=== PATIENT | female | born 1970 | race Caucasian/White ===

== ENCOUNTER → 2018-05-06 | Outpatient (CLI) | payer BC | LOC: FIMAGING 15:22 | PROVIDERS: ATTEND Physician Assistant Surgical | DX: Z09 Encounter for follow-up examination after completed treatment for conditions other than malignant neoplasm (principal); M43.12 Spondylolisthesis, cervical region; G56.02 Carpal tunnel syndrome, left upper limb; G56.01 Carpal tunnel syndrome, right upper limb; Z98.1 Arthrodesis status ==

== ENCOUNTER → 2018-07-31 | Outpatient (CLI) | payer BC | LOC: FIMAGING 11:52 | PROVIDERS: ATTEND Orthopaedic Surgery | DX: Z01.818 Encounter for other preprocedural examination (principal); M17.11 Unilateral primary osteoarthritis, right knee ==

== ENCOUNTER 2018-08-07 05:55 | Observation (INO) | payer BC ==
[2018-08-07] MEDS ORDERED: TRANEXAMIC ACID 3,000 MG in NS (SYRINGE) 50 ML IRR ONE (06:00)
[2018-08-07] MEDS ORDERED: ROPIVACAINE 0.2% 80 MG, EPINEPHrine 0.2 MG, KETOROLAC TROMETHAMINE 30 MG in SYRINGE 0 ML IU ONE (06:00)
[2018-08-07] MEDS ORDERED: DEXAMETHASONE 4 MG/ML VIAL IVP ONE (06:04)
[2018-08-07] MEDS ORDERED: LR 1,000 ML IV ONE (06:04)
[2018-08-07] MEDS ORDERED: ACETAMINOPHEN 325 MG TAB PO ONE (06:04)
[2018-08-07] MEDS ORDERED: ceFAZolin 2 GM/DEXTROSE 100 ML IV ONE (06:04)
[2018-08-07] MEDS ORDERED: FAMOTIDINE 20 MG TAB PO ONE (06:04)
--- NOTE | 2018-08-07 06:24 | PDHPUP ---
History & Physical Update H&P update statement: This history and physical update is based on an assessment of the patient which was completed after admission or registration (within 24 hours), but prior to the surgery/procedure. H&P update: H&P reviewed & patient examined, no change in patient's condition since H&P completed
[2018-08-07] MEDS ORDERED: TRANEXAMIC ACID 3,000 MG/50 ML BAG IRR ONE (06:39)
[2018-08-07] MEDS ORDERED: LIDOCAINE 1% 2 ML INJ ONE (06:52)
[2018-08-07] MEDS ORDERED: MIDAZOLAM 2 MG/2 ML VIAL ONE (06:55)
[2018-08-07] MEDS ORDERED: MIDAZOLAM 2 MG/2 ML VIAL IVP ONE (06:56)
--- NOTE | 2018-08-07 07:00 | PDANEPAE ---
ANE History of Present Illness 48 year old for right TKA ANE Past Medical History - Cardiovascular History Hx Hypertension: No Hx Arrhythmias: No Hx Chest Pain: No Hx Coronary Artery / Peripheral Vascular Disease: No Hx CHF / Valvular Disease: No Hx Palpitations: No - Pulmonary History Hx COPD: No Hx Asthma/Reactive Airway Disease: No Hx Recent Upper Respiratory Infection: No Hx Oxygen in Use at Home: No Hx Sleep Apnea: No Sleep Apnea Screening Result - Last Documented: Negative - Neurologic History Hx Cerebrovascular Accident: No Hx Seizures: No Hx Dementia: No - Endocrine History Hx Diabetes: No - Renal History Hx Renal Disorders: No Renal History Comment: KIDNEY INF 2017 - Liver History Hx Hepatic Disorders: No - Neurological & Psychiatric Hx Hx Neurological and Psychiatric Disorders: Yes Neurological / Psychiatric History Comment: VENLAFAXINE - Cancer History Hx Cancer: No - Congenital Disorder History Hx Congenital Disorders: No - GI History Hx Gastrointestinal Disorders: No - Other Health History Other Health History: NEG - Chronic Pain History Chronic Pain: Yes (NECK & R KNEE) - Surgical History Prior Surgeries: MAGO KNEE SURGERY. HYSTERECTOMY 2009 DERMOID CYST. MAGO KNEE SCOPES 2006. CERV FUSION 11/2017. BONE GRAFT R FOOT. LIPOMA CYST L SHOULDER. 05/2008 CARPAL TUNNEL R. E/2007 CARPAL TUNNEL L ANE Review of Systems Review of systems is: negative Review of Systems: - Exercise capacity METS (RN): 4 METS ANE Patient History - Allergies Allergies/Adverse Reactions: No Known Allergies Allergy (Unverified 06/26/18 10:30) - Home Medications Home Medications: Ascorbic Acid [Vitamin C 500 mg (*)] 500 mg PO DAILY 06/26/18 [Last Taken 1 Month Ago ~07/07/18] Cholecalciferol Vit D3 [Vitamin D3 (*)] 1,000 units PO DAILY 06/26/18 [Last Taken 5 Months Ago ~03/07/18] Cyclobenzaprine [Flexeril 10 MG (*)] 10 mg PO BID 06/26/18 [Last Taken 08/07/18] Gabapentin [Neurontin 300 MG (*)] 300 mg PO TID 06/26/18 [Last Taken 08/07/18] Herbals/Supplements -Info Only 1 ea PO DAILY 06/26/18 [Last Taken Unknown] Naproxen 500 mg PO BID 06/26/18 [Last Taken 07/29/18] Ethel-3 Fatty Acids [Fish Oil 1000 mg (*)] 1,000 mg PO DAILY 06/26/18 [Last Taken 6 Months Ago ~02/04/18] Venlafaxine Xr [Effexor Xr 75MG (*)] 225 mg PO DAILY 06/26/18 [Last Taken ] - NPO status NPO Since - Liquids (Date): 08/06/18 NPO Since - Liquids (Time): 20:30 NPO Since - Solids (Date): 08/06/18 NPO Since - Solids (Time): 23:30 - Anes Hx Anes Hx: no prior problems - Smoking Hx Smoking Status: Former smoker - Family Anes Hx Family Hx Anesthesia Complications: NEG ANE Labs/Vital Signs - Vital Signs Height: 162.56 cm Weight: 72.575 kg ANE Physical Exam - Airway Neck exam: FROM Mallampati Score: Class 1 Mouth exam: normal dental/mouth exam - Pulmonary Pulmonary: no respiratory distress - Cardiovascular Cardiovascular: regular rate and rhythym - ASA Status ASA Status: II ANE Anesthesia Plan Anesthesia Plan: spinal Regional Anesthesia: adductor canal FNB
[2018-08-07] MEDS ORDERED: fentaNYL 100 MCG/2 ML INJ ONE ×3 (07:08→09:09)
[2018-08-07] MEDS ORDERED: PROPOFOL/EMULSION 500 MG/50 ML BOTTLE IV ONE (07:09)
[2018-08-07] MEDS ORDERED: fentaNYL 250 MCG/5 ML INJ ONE (07:52)
[2018-08-07] MEDS ORDERED: PROPOFOL 200 MG/20 ML VIAL ONE (08:16)
[2018-08-07] MEDS ORDERED: NALOXONE HCL 0.4 MG/ML INJ IVP PRN (08:24)
[2018-08-07] MEDS ORDERED: PROMETHAZINE HCL 25 MG/ML INJ IVP PRN ×2 (08:24→08:39)
[2018-08-07] MEDS ORDERED: ONDANSETRON 4 MG/2 ML VIAL IVP PRN ×2 (08:24→08:39)
[2018-08-07] MEDS ORDERED: HYDROCODONE/APAP 5/325 TAB PO PRN (08:24)
[2018-08-07] MEDS ORDERED: DIPHENOXYLATE/ATROPINE LOMOTIL 1 TAB PO PRN (08:39)
[2018-08-07] MEDS ORDERED: CYCLOBENZAPRINE 10 MG TAB PO PRN ×2 (08:39→13:38)
[2018-08-07] MEDS ORDERED: LACTULOSE 20 GM/30 ML UDCUP PO PRN (08:39)
[2018-08-07] MEDS ORDERED: METOCLOPRAMIDE 10 MG/2 ML VIAL IVP PRN (08:39)
[2018-08-07] MEDS ORDERED: POLYETHYLENE GLYCOL 3350 17 GM PKT PO PRN (08:39)
[2018-08-07] MEDS ORDERED: PROMETHAZINE HCL 25 MG SUPPR PR PRN (08:39)
[2018-08-07] MEDS ORDERED: diphenhydrAMINE 25 MG CAP PO PRN (08:39)
[2018-08-07] MEDS ORDERED: ONDANSETRON DISINTEGRATING 4 MG TAB PO PRN (08:39)
[2018-08-07] MEDS ORDERED: MAGNESIUM HYDROXIDE 30 ML UDCUP PO PRN (08:39)
[2018-08-07] MEDS ORDERED: BISACODYL 10 MG SUPP PR PRN (08:39)
[2018-08-07] MEDS ORDERED: TEMAZEPAM 15 MG CAP PO PRN (08:39)
--- NOTE | 2018-08-07 08:39 | POSTOPPROG ---
Post Op Note Date of Operation: 08/07/18 Surgeon: Camille Bob Pharmacy Intake Technician: sujey bob PA-C Anesthesiologist: Dr. Barnes Anesthesia: Spinal, Other (Specify) (adductor canal block) Pre-op Diagnosis: right knee OA Post-op Diagnosis: same Indication: right knee pain Procedure: R TKA robot assisted sensor assisted Findings: severe knee OA Inf/Abcess present in the surg proc area at time of surgery?: No EBL: 50-100
--- NOTE | 2018-08-07 08:54 | POSTANESTH ---
Post Anesthetic Evaluation Cardiovascular Status: Normal, Stable Respiratory Status: Normal, Stable Level of Consciousness/Mental Status: Can Participate in Eval, Mildly Sleepy, Arousable Pain Control: Adequate, Prn Tx Ordered Nausea/Vomiting Control: Adequate, Prn Tx Ordered Complications Possibly Related to Anesthesia: None Noted
[2018-08-07] MEDS ORDERED: LR 1,000 ML IV SCH (09:00)
[2018-08-07] MEDS: fentaNYL 100 MCG/2 ML INJ IVP PRN ×2 (09:04→09:10)
[2018-08-07] MEDS ORDERED: NALOXONE HCL 0.4 MG/ML INJ ONE (09:21)
[2018-08-07] MEDS: oxyCODONE IR 5 MG TAB PO PRN ×5 (10:11→21:53)
[2018-08-07] MEDS: CYCLOBENZAPRINE 10 MG TAB PO SCH ×2 (10:34→20:29)
[2018-08-07] MEDS: GABAPENTIN 300 MG CAP PO SCH ×3 (10:34→21:54)
[2018-08-07] MEDS: SENNOSIDES/DOCUSATE SODIUM TAB PO SCH ×2 (10:35→19:58)
[2018-08-07] MEDS: VENLAFAXINE XR 75 MG CAP PO SCH (10:35)
[2018-08-07] MEDS: ACETAMINOPHEN 325 MG TAB PO SCH ×2 (11:57→17:46)
[2018-08-07] MEDS ORDERED: DIAZEPAM 5 MG TAB PO PRN (12:20)
[2018-08-07] MEDS: ceFAZolin 2 GM/DEXTROSE 100 ML IV SCH ×2 (14:40→21:54)
[2018-08-07] MEDS: ASPIRIN 81 MG CHEWABLE TAB PO SCH (19:58)
[2018-08-07] MEDS: FAMOTIDINE 20 MG TAB PO SCH (19:58)
[2018-08-08] MEDS: ACETAMINOPHEN 325 MG TAB PO SCH ×2 (00:55→05:20)
[2018-08-08] MEDS: oxyCODONE IR 5 MG TAB PO PRN ×3 (00:55→09:21)
[2018-08-08 07:47] VITALS: BP 106/68
--- NOTE | 2018-08-08 08:46 | GOP ---
DATE OF OPERATION: 08/07/2018 SURGEON: Gemini Hall MD OUTREACH TEAM MEMBER: Nguyen Hall PA-C ANESTHESIA: Spinal. PREOPERATIVE DIAGNOSIS: Right knee osteoarthritis. POSTOPERATIVE DIAGNOSIS: same PROCEDURE PERFORMED: Right total knee arthroplasty with computer navigation, robotic assist. FINDINGS: ESTIMATED BLOOD LOSS: 30 cc INDICATIONS: The patient is a 48-year-old female with severe and progressive pain and deformity of the right knee unresponsive to conservative care. The risks and benefits of surgical intervention were explained in detail. DESCRIPTION OF PROCEDURE: The patient was brought to the operative room and placed on the table in the supine position. Spinal anesthesia was induced without difficulty. A pneumatic tourniquet was applied about the right proximal thigh, and the leg was prepped and draped in a sterile fashion. The leg mason was applied. After exsanguination by elevation the tourniquet was inflated to 250 mmHg. Incision was made anterior medial from the tibial tuberosity to a point 2 cm proximal to the superior pole of the patella. Medial parapatellar arthrotomy was carried out from the superior pole of the patella and posteriorly in line with the fibers of the Type II VMO. The medial collateral ligament was elevated and the infrapatellar fat pad was resected. The patella was everted and the articular surface was excised. A 35 mm patellar button was placed. Attention was turned first to the distal aspect of the femur. After exposure of the femur, 2 half pins were placed for fixation of the femoral array. In a similar fashion, 2 pins were placed anteromedial on the tibia for fixation of the tibial array. External land marking and registration of the hip center was performed without difficulty. Internal femoral and tibial registration was carried out without difficulty and the femoral and tibial checkpoints were placed and verified for accuracy. Attention was turned to the femur. The foot print for the size 3 femoral component was cut with the saw using the [employer] robotic system and verified for accuracy against the CT based plan. In a similar fashion, the saw was used to cut the footprint for the size 3 tibial component using the [employer] system and verified for accuracy against the CT based plan. The tibial articular surface was excised without difficulty, followed by the intercondylar box cut. The knee was extended and the remnants of the medial and lateral meniscus were excised. The posterior capsule was injected with ropivacaine, epinephrine and Toradol. A size 3 tibial tray was positioned. Trial reduction was then carried out. There was excellent range of motion, alignment, and stability using the 9 mm polyethylene. All trials were then removed. The joint was thoroughly irrigated and carefully dried. The press-fit components were implanted. The permanent 9 mm polyethylene was placed without difficulty. The tourniquet was deflated and all bleeders were coagulated. The wound was thoroughly irrigated and closed using interrupted sutures of 2-0 Vicryl for the joint capsule. The subcu was closed with 3-0 Vicryl and the skin with 4-0 Monocryl. Dermabond and Steri-Strips were applied followed by a compressive dressing. The patient was then moved from the operating room to the recovery room in good condition, having tolerated the procedure well. ANESTHESIA: General. /[id number]/MODL MTDD
[2018-08-08] MEDS: ASPIRIN 81 MG CHEWABLE TAB PO SCH (09:20)
[2018-08-08] MEDS: SENNOSIDES/DOCUSATE SODIUM TAB PO SCH (09:20)
[2018-08-08] MEDS: FAMOTIDINE 20 MG TAB PO SCH (09:20)
[2018-08-08] MEDS: GABAPENTIN 300 MG CAP PO SCH (09:20)
[2018-08-08] MEDS: VENLAFAXINE XR 75 MG CAP PO SCH (09:20)
[2018-08-08] MEDS: CYCLOBENZAPRINE 10 MG TAB PO SCH (09:20)
--- NOTE | 2018-08-08 10:14 | SOAPPROG ---
SOAP Progress Note Assessment/Plan: Assessment: Patient is doing well POD 1 s/p Right TKA pain is well controlled now. had pain issues yesterday afternoon. Most likely because patient had narcan in PACU. well controlled now. Educated patient that the pain will worsen today and tomorrow. Patient understands and believes she can handle it with oral pain meds. VTE ppx: recommend aspirin 81 mg BID for 4 weeks D/c planning: dc to home today. Plan: 08/08/18 10:13 Subjective: pain issues yesterday afternoon. denies SOB, chest pain and N/V. Objective: Vital Signs Temp Pulse Resp BP Pulse Ox 36.7 C 88 18 106/68 96 08/08/18 07:45 08/08/18 07:45 08/08/18 07:45 08/08/18 07:45 08/08/18 07:45 Laboratory Results 08/08/18 04:45 08/07/18 08/08/18 08/09/18 05:59 05:59 05:59 Intake Total 3800 250 Output Total 4300 1300 Balance -500 -1050 RLE: incision dressing is clean and dry, NVI, +pf/df ICD10 Worksheet Patient Problems: Problems Problem Status Onset Primary localized osteoarthritis of right knee Acute
== END 2018-08-08 10:48 | disposition home or self-care (01) ==
LOC: F3N 05:55
PROVIDERS: ADMIT Orthopaedic Surgery; ATTEND Orthopaedic Surgery
PROC: 8E0Y0CZ Robotic Assisted Procedure of Lower Extremity, Open Approach (ICD-10-PCS; principal; 2018-08-07 07:15)
PROC: 0SRC0JZ Replacement of Right Knee Joint with Synthetic Substitute, Open Approach (ICD-10-PCS; principal; 2018-08-07 07:15)
PROC: 8E0YXBZ Computer Assisted Procedure of Lower Extremity (ICD-10-PCS; principal; 2018-08-07 07:15)
DX: M17.11 Unilateral primary osteoarthritis, right knee (principal)
CPT/HCPCS: 27447; 73560; 97116; 97161; 97165; G0378; J0171; J0690; J1100; J1885; J2250; J2270; J2310; J2704; J2795; J3010

== ENCOUNTER 2018-08-15 10:53 | Emergency (ER) | payer BC ==
--- NOTE | 2018-08-15 11:39 | EDPHY ---
H & P Time Seen by Provider: 08/15/18 11:27 HPI/ROS: Chief complaint. Headache HPI. 48-year-old female presents with headache that began yesterday. Gradual onset. History of migraines though not for some time. It is described as frontal going through to her back. Photophobia. Nausea and vomiting. Similar to previous headaches. Did not strike her head. She has had no fever. She had total right knee arthroplasty on August 07. She feels her right knee is warm but not red. No chest discomfort or trouble breathing. No abdominal pain. Denies focal weakness or paresthesias. ROS 10 systems were reviewed and negative with the exception of the elements mentioned in the history of present illness Past Medical/Surgical History: Recent right knee arthroplasty, anxiety, depression, chronic neck pain, hysterectomy, cervical fusion. Social History: , nonsmoker, no alcohol Smoking Status: Former smoker Physical Exam: General Appearance: Alert pleasant well-developed female moderate distress vital signs are stable. Afebrile Eyes: Pupils equal and round no pallor or injection. ENT, Mouth: Mucous membranes are moist. Respiratory: There are no retractions, lungs are clear to auscultation. Cardiovascular: Regular rate and rhythm. Gastrointestinal: Abdomen is soft and nontender, no masses, bowel sounds normal. Neurological: Awake and alert, sensory and motor exams grossly normal. Speech is normal. Cranial nerves are normal. There is no pronator drift. Finger-to- nose are intact bilaterally Skin: Warm and dry, no rashes. Musculoskeletal: Neck is supple nontender. Extremities right knee is inspected. No evidence of cellulitis. Mild postoperative swelling. Psychiatric: Patient is oriented X 3, there is no agitation. Constitutional: Initial Vital Signs Temperature (C) 36.6 C 08/15/18 11:00 Heart Rate 84 08/15/18 11:00 Respiratory Rate 17 08/15/18 11:00 Blood Pressure 115/83 H 08/15/18 11:00 O2 Sat (%) 97 08/15/18 11:00 O2 Delivery Mode Room Air Allergies/Adverse Reactions: No Known Allergies Allergy (Verified 08/15/18 10:59) Home Medications: Medication Instructions Recorded Ascorbic Acid [Vitamin C 500 mg 500 mg PO DAILY 06/26/18 (*)] Cyclobenzaprine [Flexeril 10 MG 10 mg PO BID 06/26/18 (*)] Gabapentin [Neurontin 300 MG (*)] 300 mg PO TID 06/26/18 Herbals/Supplements -Info Only 1 ea PO DAILY 06/26/18 Glide-3 Fatty Acids [Fish Oil 1000 1,000 mg PO DAILY 06/26/18 mg (*)] Venlafaxine Xr [Effexor Xr 75MG 225 mg PO DAILY 06/26/18 (*)] Acetaminophen [Tylenol 325mg (*)] 650 mg PO Q6HRS tab 08/08/18 Aspirin [Aspirin 81mg (*)] 81 mg PO BID tab.chew 08/08/18 Polyethylene Glycol 3350 [Miralax 17 gm PO DAILY PRN pkt 08/08/18 17 gm (*)] Sennosides/Docusate Sodium 1 - 2 tab PO BID tab 08/08/18 [Senokot-S] celeCOXIB [Celebrex (*)] 200 mg PO DAILY cap 08/08/18 oxyCODONE IR [Oxycodone Ir (*)] 5 - 10 mg PO Q3HRS PRN tab 08/08/18 Medical Decision Making Procedures: IV normal saline. Reglan, Benadryl I V. No Toradol as the patient is already taking Celebrex. ED Course/Re-evaluation: Re-evaluation at 1:05 p.m.. Patient is stable and tells me that she has no headache. She is conversational and neurologically intact The patient, her , and I discussed laboratory evaluation, treatment plan including criteria for return importance of follow-up and further evaluation. She expresses understanding and agreement Differential Diagnosis: This appears to be migraine headache. Was gradual onset and not abrupt her thunderclap. I do not think this represents subarachnoid hemorrhage. There is no evidence for infection postoperatively in her right knee - Data Points Laboratory Results: Laboratory Results 08/15/18 11:57 08/15/18 12:00 08/15/18 08/15/18 12:00 11:57 WBC 6.54 10^3/uL 10^3/uL (3.80-9.50) RBC 3.88 10^6/uL L 10^6/uL (4.18-5.33) Hgb 12.1 g/dL L g/dL (12.6-16.3) Hct 36.2 % L % (38.0-47.0) MCV 93.3 fL fL (81.5-99.8) MCH 31.2 pg pg (27.9-34.1) MCHC 33.4 g/dL g/dL (32.4-36.7) RDW 12.7 % % (11.5-15.2) Plt Count 411 10^3/uL H 10^3/uL (150-400) MPV 9.3 fL fL (8.7-11.7) Neut % (Auto) 68.3 % % (39.3-74.2) Lymph % (Auto) 19.7 % % (15.0-45.0) [place] % (Auto) 8.7 % % (4.5-13.0) Eos % (Auto) 1.5 % % (0.6-7.6) Baso % (Auto) 0.9 % % (0.3-1.7) Nucleat RBC Rel Count 0.0 % % (0.0-0.2) Absolute Neuts (auto) 4.46 10^3/uL 10^3/uL (1.70-6.50) Absolute Lymphs (auto) 1.29 10^3/uL 10^3/uL (1.00-3.00) Absolute Monos (auto) 0.57 10^3/uL 10^3/uL (0.30-0.80) Absolute Eos (auto) 0.10 10^3/uL 10^3/uL (0.03-0.40) Absolute Basos (auto) 0.06 10^3/uL 10^3/uL (0.02-0.10) Absolute Nucleated RBC 0.00 10^3/uL 10^3/uL (0-0.01) Immature Gran % 0.9 % % (0.0-1.1) Immature Gran # 0.06 10^3/uL 10^3/uL (0.00-0.10) Sodium 140 mEq/L mEq/L (135-145) Potassium 4.5 mEq/L mEq/L (3.3-5.0) Chloride 104 mEq/L mEq/L (97-110) Carbon Dioxide 27 mEq/l mEq/l (22-31) Anion Gap 9 mEq/L mEq/L (8-16) BUN 13 mg/dL mg/dL (7-23) Creatinine 0.6 mg/dL mg/dL (0.6-1.0) Estimated GFR > 60 Glucose 112 mg/dL H mg/dL (70-100) Calcium 9.7 mg/dL mg/dL (8.5-10.4) Medications Given: Discontinued Medications Diphenhydramine HCl (Benadryl Injection) 25 mg IVP EDNOW ONE Stop: 08/15/18 11:54 Last Admin: 08/15/18 12:09 Dose: 25 mg Sodium Chloride (Ns) 1,000 mls @ 0 mls/hr IV EDNOW ONE; Wide Open PRN Reason: Protocol Stop: 08/15/18 11:54 Last Admin: 08/15/18 12:09 Dose: 1,000 mls Lorazepam (Ativan Injection) 1 mg IVP EDNOW ONE Stop: 08/15/18 11:54 Last Admin: 08/15/18 12:08 Dose: 1 mg Metoclopramide HCl (Reglan Injection) 10 mg IVP EDNOW ONE Stop: 08/15/18 11:54 Last Admin: 08/15/18 12:09 Dose: 10 mg Departure - Departure Disposition: Home, Routine, Self-Care Clinical Impression: Migraine headache Qualifiers: Migraine type: unspecified Status migrainosus presence: without status migrainosus Intractability: not intractable Qualified Code(s): G43.909 - Migraine, unspecified, not intractable, without status migrainosus Condition: Good Instructions: Migraine Headache (ED) Additional Instructions: May use Tylenol 1000 mg every 6 hr as needed for headache. Return for worsening symptoms. Recheck in 1 day for continuing symptoms Referrals: Krissy Adan PA [Primary Care Provider] - 1 day, if not improved
[2018-08-15] MEDS ORDERED: METOCLOPRAMIDE 10 MG/2 ML VIAL IVP ONE (11:53)
[2018-08-15] MEDS ORDERED: LORazepam 2 MG/ML INJ IVP ONE (11:53)
[2018-08-15] MEDS ORDERED: NS 1,000 ML IV ONE (11:53)
[2018-08-15 12:11] LABS: PLATELET COUNT 411 10^3/uL (150-400)
[2018-08-15 13:43] VITALS: BP 111/87
== END 2018-08-15 13:43 | disposition home or self-care (01) ==
LOC: UNMERGE 10:53 → MERGE 10:53
DX: G43.909 Migraine, unspecified, not intractable, without status migrainosus (principal); M54.2 Cervicalgia; F41.8 Other specified anxiety disorders; Z87.891 Personal history of nicotine dependence
CPT/HCPCS: 96374; J1200; J2060; J2765